=== PATIENT | female | born 1995 | race Two or more races ===

== ENCOUNTER 2016-06-28 07:22 | Inpatient (IN) | payer OTHER ==
[2016-06-28] MEDS ORDERED: OXYTOCIN IN NS 334 ML IV PRN (07:44)
[2016-06-28] MEDS ORDERED: LACTATED RINGERS 1,000 ML IV PRN (07:44)
[2016-06-28] MEDS ORDERED: PENICILLIN G POTASSIUM 5 MMU in NS 0.9% (MINI-BAG PLUS) 100 ML IV ONE ×2 (07:44→08:45)
[2016-06-28] MEDS ORDERED: LACTATED RINGERS 1,000 ML IV SCH (07:45)
[2016-06-28] MEDS ORDERED: OXYTOCIN 10 UNITS/ML VIAL ONE ×2 (08:38→11:53)
[2016-06-28] MEDS ORDERED: LIDOCAINE Viscous 2% 15 ML UDCUP ONE (08:39)
[2016-06-28] MEDS ORDERED: MINERAL OIL 25 ML BOT ONE (08:39)
[2016-06-28] MEDS ORDERED: LIDOCAINE 1% (PRES FREE) 30 ML VIAL ONE (08:39)
[2016-06-28] MEDS ORDERED: INSULIN NPL SUB-Q ONE (08:54)
[2016-06-28] MEDS ORDERED: LISPRO SUB-Q ONE (08:54)
[2016-06-28 09:17] LABS: HEMATOCRIT 35.9 % (37.0-47.0); HEMOGLOBIN 11.8 gm/l (12.0-16.0); MEAN CELL VOLUME 86.5 fl (81.0-99.0); MEAN CORPUSCULAR HEMOGLOBIN 28.4 pg (27.0-31.0); MEAN CORPUSCULAR HGB CONC 32.9 g/dl (33.0-37.0); RED CELL DISTRIBUTION WIDTH 13.4 % (11.5-14.5)
[2016-06-28] MEDS ORDERED: BETAMETHASONE ACET 6 MG/ML 5ML VIAL IM ONE (09:58)
[2016-06-28 10:11] VITALS: BMI 45.4
[2016-06-28] MEDS ORDERED: INSULIN ASPART (DOSE) 100 UNITS/1 ML SUB-Q ONE (10:31)
--- NOTE | 2016-06-28 10:42 | PCMAN ---
OB Admission Note - History : 2 Term: 1 : 0 Abortions (S&E): 0 Livin EDC:: 07/31/16 (by 10wk US) Gestational Age (weeks): 35 Days (#/7): 2 Admit Cervical Dilation:: 4 Admit Cervical Effacement (%):: 50 Admit Station:: -3 Admit Presentaton:: cephalic Membrane Status: Ruptured Rupture (Date): 06/28/16 Rupture (Time): 05:00 Membranes Comment:: clear fluid Labor Onset (Date): 06/28/16 Labor Onset (Time): 05:00 Contractions: Yes Contraction Frequency:: q 2-3min Heart Rate:: 150 (moderate, accels present, decels absent) Status:: Cat I EFW:: 8.5lbs Summary of Course:: Note delayed d/t patient care. Late to care due to insurance issues, onset at 17w2d x 7 visit, gap in care from 28 to 33wks. Sure LMP gave PANDA 08/19/16 but 10wk u/s gave PANDA 07/31/16, given 2wk discrepancy PANDA changed to U/S. 3hr GTT 166, 261, 226, A1C 7.1, fasting on admit 140. Delayed 3hr GTT d/t patient lack of follow up after request for lab at [facility]. Pre preg wt: 180, BMI 35.9, TWlbs. OB HxIOL d/t late diagnosis of GDM without treatment, 7lbs 8oz baby at 39wks. No complications with shoulder dystocia. Reported SROM at 0500 for clear fluid with spontaneous onset of contractions, arrived to [facility] with strong regular contractions and shortly after had spontaneous urge to push. - Labs Blood Type: O (+) positive Hct/Hgb:: 12.0 Rubella Status: Immune GBS Status: Unknown - Review of Systems neg - Physical Exam General: Afebrile, Moderate Distress (with contractions, active labor.) Neurological: Alert, Oriented x 4, Normal Gait Lungs: Clear to Auscultation Bilaterally Cardiovascular: Regular Rate and Rhythm Genitourinary: Normal Female Genitalia - Problems (1) Premature rupture of membranes (PROM), onset of labor within 24 hours, antepartum, full term Status: Acute Code: O42.019Assessment/Plan: A: at 35w2d by 10wk u/s. PPROM clear fluid, gbs unknown Active labor, spontaneous urge to push FHT cat. I Late diagnose GDM untreated OB hx GDM late diagnosis with IOL at 39wks 7lb 8oz baby uncomplicated P: Admit to [facility] IV and GBS prophylaxis if needed Anticipate precipitous delivery
--- NOTE | 2016-06-28 10:49 | PDOC36 ---
Provider Note Subject: OB consultation Note: 20yo , at 35+2; pt is dated by 10w u/s confirmed with 20w anatomy ultrasound. Pt admitted with SROM and labor at 5cm. Pt is a late diagnosis of GDM, with a hgba1c 06/27/16 of 7.1. Upon admission fsbs = 140, was given 2u humalog, and repeat 153. FHT: 130's, mod lewis, reactive, early decelerations are noted; contractions q3-4 min, strong per pt SVE: /-2, cephalic EFW = 4200g plan: PCN for GBS betamethasone 1 dose given another 6units humalog ordered (for total of 8units) discussed possible macrosomia, diabetes and risk of shoulder dystocia / injury clinical efw 4200g, and discussed risks offered primary c/section - discussed as efw 4200g (less than 4500g as per ACOG guidelines) however there is some variance with clinical EFW and there is possibility actual FW may be >4500g, along with uncontrolled diabetes. pt has considered and desires primary c/section. sign-out given to Dr. Cook.
--- NOTE | 2016-06-28 10:57 | PDOC36 ---
Provider Note Subject: consult GDM Note: S: Dara has had spontaneous urge to push and is struggling to cope. 3hr GTT results called in by CNLinda in clinc, elevated. O: VE: /-3 FHT: Cat I 150s/moderate/accels present/decels absent A: at 35w2d PPROM, gbs unknown Uncontrolled GDM, late diagnosis P: Phone consult to Lew re elevated 3hr, AIC, and fasting, late diagnosis Given strong urge to push and potential for eminent delivery, consulted for GDM management. Plan made for 2unit Humalog SQ, if not delivered or eminent by 1 hr will re- evaluate
--- NOTE | 2016-06-28 11:02 | PDOC36 ---
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
[2016-06-28 11:18] LABS: ALB/GLOB RATIO 1.1 (>1.0); CALCIUM 8.7 mg/dL (8.6-10.3); URIC ACID 4.5 mg/dL (2.3-7.6)
[2016-06-28] MEDS ORDERED: BUPIVACAINE 0.75% SPINAL AMPUL 2 ML ONE (11:30)
[2016-06-28] MEDS ORDERED: SPINAL PROCEDURAL TRAY 1 EACH ONE (11:30)
[2016-06-28] MEDS ORDERED: MORPHINE SULFATE (DURAMORPH) 1 MG/ML 10ML AMP ONE (11:30)
[2016-06-28] MEDS ORDERED: FENTANYL 100 MCG/2 ML VIAL ONE (11:30)
[2016-06-28] MEDS ORDERED: CEFAZOLIN SODIUM 1,000 MG VIAL ONE (11:51)
[2016-06-28] MEDS ORDERED: DIPHENHYDRAMINE HCL 50 MG/1 ML VIAL IV PRN ×2 (12:00→13:51)
[2016-06-28] MEDS ORDERED: NALOXONE HCL 0.4 MG/ML VIAL IV PRN (12:00)
[2016-06-28] MEDS ORDERED: PROMETHAZINE HCL 25 MG/ML VIAL IM PRN (12:00)
[2016-06-28] MEDS ORDERED: EPHEDRINE SULFATE 50 MG/ML 1ML VIAL IV PRN (12:00)
[2016-06-28] MEDS ORDERED: MORPHINE SULFATE 4 MG/ML SYRINGE IV PRN (12:00)
[2016-06-28] MEDS ORDERED: HYDROMORPHONE HCL 1 MG/ML SYRINGE IV PRN (12:00)
[2016-06-28] MEDS ORDERED: MORPHINE SULFATE 2 MG/ML SYRINGE IV PRN (12:00)
[2016-06-28] MEDS ORDERED: NALBUPHINE HCL 20 MG/ML AMP IV PRN (12:00)
[2016-06-28] MEDS ORDERED: ONDANSETRON 4 MG/2ML 2 ML VIAL IV PRN ×2 (12:00→13:51)
[2016-06-28] MEDS ORDERED: HYDROMORPHONE HCL 2 MG/ML SYRINGE IV PRN (12:00)
[2016-06-28] MEDS ORDERED: MORPHINE SULFATE 10 MG/ML SYRINGE IV PRN (12:00)
[2016-06-28] MEDS ORDERED: DIPHENHYDRAMINE HCL 50 MG/1 ML VIAL ONE (12:20)
[2016-06-28] MEDS ORDERED: MIDAZOLAM HCL 1 MG/ML 2ML VIAL ONE (12:21)
[2016-06-28] MEDS ORDERED: KETOROLAC TROMETHAMINE 30 MG/ML 1 ML VIAL ONE (12:24)
[2016-06-28] MEDS ORDERED: PENICILLIN G 3 MIL UNIT PREMIX 3 MMU in Premix (D5W) 50 ml 1 EACH IV SCH (12:30)
[2016-06-28] MEDS ORDERED: DIPHENHYDRAMINE HCL 25 MG CAPSULE PO PRN (13:51)
[2016-06-28] MEDS ORDERED: OXYCODONE HCL 5 MG TABLET PO PRN (13:51)
[2016-06-28] MEDS ORDERED: LANOLIN 50 APPLIC/7G TUBE TP PRN (13:51)
[2016-06-28] MEDS ORDERED: KETOROLAC TROMETHAMINE 30 MG/ML 1 ML VIAL IV PRN (13:51)
[2016-06-28 16:26] LABS: CREATININE,RANDOM URINE 138 mg/dL
[2016-06-28] MEDS: D5 1/4NS with 20 mEq KCL 1,000 ML IV SCH (18:01)
[2016-06-28] MEDS: KETOROLAC TROMETHAMINE 30 MG/ML 1 ML VIAL IV SCH (18:44)
--- NOTE | 2016-06-28 20:35 | PDOC36 ---
Provider Note Subject: Post-op note Note: S: Pt asking to get up to go see her baby girl, Kym, who is in the nursery because of respiratory and blood sugar issues. Pain is OK. Emesis x 1 but after that pt has tolerated broth and water. O: VS improving, afebrile, BP 124/67 glucose was 120. Pt seems relaxed and conversing without difficulty. abd is soft, rounded, tympanitic, with somr BS Binder is on. Imp: Stable, post-op primary c/section for macrosomia, GDM unrecognized till this week; PTL at 35w2d with baby weighing 8lb5oz BP's are returning to normal, even tho P/C was elevated. Plan: Routine post-op care. Pt encouraged to get out of bed with assistance.
[2016-06-28] MEDS: DOCUSATE SODIUM 100 MG CAPSULE PO SCH (22:34)
[2016-06-29] MEDS: KETOROLAC TROMETHAMINE 30 MG/ML 1 ML VIAL IV SCH ×3 (00:47→21:40)
[2016-06-29] MEDS: D5 1/4NS with 20 mEq KCL 1,000 ML IV SCH ×3 (02:25→21:11)
[2016-06-29 06:34] LABS: HEMATOCRIT 27.3 % (37.0-47.0); HEMOGLOBIN 9.1 gm/l (12.0-16.0); MEAN CELL VOLUME 86.7 fl (81.0-99.0); MEAN CORPUSCULAR HEMOGLOBIN 28.9 pg (27.0-31.0); MEAN CORPUSCULAR HGB CONC 33.3 g/dl (33.0-37.0); RED CELL DISTRIBUTION WIDTH 13.7 % (11.5-14.5)
--- NOTE | 2016-06-29 06:36 | OP ---
Dara Espinoza DATE OF SURGERY: 06/28/2016 SURGEON: Vivek Cook MD. VALVE INSERTER SURGEON: Chela Harrison CNM. PREOPERATIVE DIAGNOSIS: Intrauterine at term with premature labor and macrosomia. POSTOPERATIVE DIAGNOSIS: Intrauterine at term with premature labor and macrosomia and gestational diabetes. ANESTHESIA: Spinal. FINDINGS: A viable , normal appearing placenta. TECHNICAL PROCEDURE: After induction of satisfactory spinal anesthesia the patient was placed in the supine position and prepped and draped in the usual fashion. The abdomen was entered in the usual fashion through a pfannenstiel type incision. The left paravesical space was identified and the left lateral edge of the bladder and peritoneal reflection were both identified. This space was developed using blunt dissection. The pubocervical fascia in this area was incised with a knife and Morin retractors were used to expose the lower uterine segment. The lower uterine segment was then incised transversely with a knife and this incision extended bilaterally using the index fingers of both hands. The head was then elevated out of the pelvis and delivered using Lea forceps. There was some difficulty in extracting the shoulders, however, that was accomplished successfully. The infant was delivered. The infant was thoroughly suctioned. The umbilical cord was clamped after 30 seconds and divided and the infant passed off of operative field. A segment of cord was retained for cord blood gas and cultures if that was thought to be necessary. The placenta was then delivered and the cord blood was obtained. The angles of the uterine incision were tagged with Jeffery and forceps and the uterus closed in two layers. The first layer was a continuous interlocking loop suture of 0 PDS and the same suture was used to close the second layer in a continuous fashion. A small laceration was noted in the peritoneum and this was closed using a continuous stitch of 2-0 Vicryl. The fascia was then closed with a simple stitch of 0 Vicryl in the midline followed by a continuous loop suture of 0 PDS and finally the skin was closed with subcuticular stitch of 4-0 Vicryl. The incision was then treated with a skin adhesive followed by Steri-Strips. The patient tolerated the procedure well and left the operating room awake and in good condition. There were no complications. Instrument, needle, and sponge counts were correct. Estimated blood loss was 500 mL. There was no blood replacement. Specimens removed were a viable male infant and term placenta. JOB: [id number]
[2016-06-29 06:52] LABS: ALBUMIN 2.5 gm/dL (3.5-5.7); CALCIUM 8.2 mg/dL (8.6-10.3)
--- NOTE | 2016-06-29 08:41 | PDOC44 ---
- Subjective Day: 1 (feels well, offers no complaints) Reports Flatus, Reports Pain Tolerable, Reports , Reports Lochia Moderate, Reports Tolerating Regular Diet, Denies Nausea, Denies Vomiting, Denies Fever - Objective Temp Pulse Resp BP Pulse Ox 98.2 F 91 20 113/60 100 06/29/16 07:42 06/29/16 07:42 06/29/16 07:42 06/29/16 07:42 06/28/16 14:48 Lab Results 06/29/16 06/28/16 06/28/16 06:20 09:54 09:05 WBC 11.7 H 12.1 H RBC 3.15 L 4.15 L Hgb 9.1 L D 11.8 L Hct 27.3 L 35.9 L Plt Count 252 247 Creatinine 0.7 0.5 L Uric Acid 4.5 AST 20 25 ALT 13 19 Lactate Dehydrogenase 161 06/29/16 06/28/16 06/28/16 06:20 11:39 10:13 MCHC Sodium 130 L Carbon Dioxide Estimated GFR Glucose 172 H POC Capillary Glucose 147 H 153 H Calcium 8.2 L Alkaline Phosphatase Total Protein 5.0 L Albumin 2.5 L 06/28/16 06/28/16 06/28/16 09:54 09:05 08:46 MCHC 32.9 L Sodium Carbon Dioxide 16 L Estimated GFR 154 H Glucose 148 H POC Capillary Glucose 140 H Calcium Alkaline Phosphatase 131 H Total Protein 5.8 L Albumin 3.0 L Current Medications Generic Name Dose Route Start Last Admin Trade Name Freq PRN Reason Stop Dose Admin Diphenhydramine HCl 25 - 50 mg 06/28/16 12:00 06/28/16 22:39 Benadryl IV 06/29/16 12:00 25 mg Q4H PRN Administration Itching Diphenhydramine HCl 25 - 50 mg 06/28/16 13:51 Benadryl PO Q6H PRN Itching (Mild/Moderate) Diphenhydramine HCl 25 - 50 mg 06/28/16 13:51 Benadryl IV Q6H PRN Itching (Severe) Docusate Sodium 100 mg 06/28/16 21:00 06/28/16 22:34 Colace PO Not Given BID AMELIA Emollient Ointment 1 applic 06/28/16 13:51 Kak-[id number]-[id number] TP PRN PRN sore nipples Ephedrine Sulfate 5 - 10 mg 06/28/16 12:00 Ephedrine Sulfate IV 06/29/16 12:00 Q5M PRN Hydromorphone HCl 0.5 - 2 mg 06/28/16 12:00 Dilaudid IV 06/29/16 12:00 Q1H PRN Pain (Breakthrough) Hydromorphone HCl 0.5 - 2 mg 06/28/16 12:00 Dilaudid IV 06/29/16 12:00 Q1H PRN Pain Potassium Chloride/Dextrose/Sod Cl 1,000 mls @ 125 mls/hr 06/28/16 13:51 02:25 D5 1/4ns With 20 Meq Kcl IV 125 mls/hr .Q8H AMELIA Administration Ibuprofen 800 mg 06/28/16 13:51 Motrin PO Q6H PRN Pain Ketorolac Tromethamine 30 mg 06/28/16 18:30 06/29/16 07:57 Toradol IV 06/29/16 18:29 30 mg Q6H AMELIA Administration Ketorolac Tromethamine 30 mg 06/28/16 13:51 Toradol IV Q6H PRN Pain (Mild/Moderate) Morphine Sulfate 1 - 5 mg 06/28/16 12:00 Morphine Sulfate IV 06/29/16 12:00 Q1H PRN Pain (Breakthrough) Morphine Sulfate 1 - 5 mg 06/28/16 12:00 Morphine Sulfate IV 06/29/16 12:00 Q1H PRN Pain (Breakthrough) Morphine Sulfate 1 - 5 mg 06/28/16 12:00 Morphine Sulfate IV 06/29/16 12:00 Q1H PRN Pain (Breakthrough) Multivi/Iron Carb/Fe Sulf/FA/Prenat 1 tab 06/29/16 09:00 Plus PO DAILY AMELIA Nalbuphine HCl 1 - 5 mg 06/28/16 12:00 Nubain IV 06/29/16 12:00 Q4H PRN Itching Naloxone HCl 0.2 - 0.4 mg 06/28/16 12:00 Narcan IV 06/29/16 12:00 Q5M PRN Ondansetron HCl 4 mg 06/28/16 12:00 06/28/16 17:57 Zofran IV 06/29/16 12:00 4 mg Q6H PRN Administration Nausea/Vomiting Ondansetron HCl 4 mg 06/28/16 13:51 Zofran IV Q6H PRN Nausea/Vomiting Oxycodone HCl 5 - 10 mg 06/28/16 13:51 Roxicodone PO Q3H PRN Pain (Severe) Promethazine HCl 6.25 - 12.5 mg 06/28/16 12:00 Phenergan IM 06/29/16 12:00 Q4H PRN Nausea/Vomiting Sodium Chloride 10 ml 06/28/16 13:51 06/29/16 00:48 Normal Saline 10ml Flush IV 10 ml PRN PRN Administration IV Flush Sodium Chloride 10 ml 06/28/16 17:00 06/28/16 18:19 Normal Saline 10ml Flush IV Not Given Q8HR AMELIA - Physical Exam General: Afebrile, No Acute Distress Psych/Mental Status: Mood/Affect Appropriate, Judgment/Insight Intact, Bonding Well Lungs: Clear to Auscultation Bilaterally, Normal Air Movement Breast: Soft, Skin intact, Nipples Intact, No Tenderness, No Erythema, No Engorged Fundus: Firm, Midline, At Umbilicus, Other (nontender) Abdomen: Normal Bowel Sounds, Other (passed flatus, no bowel movement yet), No Tenderness, No Distention Genitourinary: Indwelling Urinary Cath Lochia: Moderate Extremities: No Tenderness Wound DBAS: Dressing in Place, Dressing Clean/Dry/Intact - Problems:Assessment/Plan (1) Anemia, Status: Acute Disposition: Stable
[2016-06-29] MEDS: DOCUSATE SODIUM 100 MG CAPSULE PO SCH ×2 (09:15→21:08)
[2016-06-29] MEDS: METFORMIN HCL 500 MG TABLET PO SCH ×2 (09:16→21:08)
[2016-06-29] MEDS: PRENATAL VIT/FE FUMARATE/FA 1 TABLET PO SCH (09:16)
[2016-06-29] MEDS: IBUPROFEN 800 MG TABLET PO PRN ×2 (15:44→23:23)
[2016-06-30] MEDS: D5 1/4NS with 20 mEq KCL 1,000 ML IV SCH (03:25)
[2016-06-30] MEDS: IBUPROFEN 800 MG TABLET PO PRN ×2 (06:24→12:44)
--- NOTE | 2016-06-30 07:44 | PDOC44 ---
- Subjective Day: 2 Reports Flatus, Reports Pain Tolerable, Reports , Reports Lochia Light, Reports Tolerating Regular Diet, Denies Nausea, Denies Vomiting, Denies Fever - Objective Temp Pulse Resp BP Pulse Ox 98.2 F 93 18 131/79 100 06/30/16 01:34 06/30/16 01:34 06/30/16 01:34 06/30/16 01:34 06/28/16 14:48 Current Medications Generic Name Dose Route Start Last Admin Trade Name Freq PRN Reason Stop Dose Admin Diphenhydramine HCl 25 - 50 mg 06/28/16 13:51 Benadryl PO Q6H PRN Itching (Mild/Moderate) Diphenhydramine HCl 25 - 50 mg 06/28/16 13:51 Benadryl IV Q6H PRN Itching (Severe) Docusate Sodium 100 mg 06/28/16 21:00 06/29/16 21:08 Colace PO 100 mg BID AMELIA Administration Emollient Ointment 1 applic 06/28/16 13:51 [id number] TP PRN PRN sore nipples Potassium Chloride/Dextrose/Sod Cl 1,000 mls @ 125 mls/hr 06/28/16 13:51 03:25 D5 1/4ns With 20 Meq Kcl IV Not Given .Q8H AMELIA Ibuprofen 800 mg 06/28/16 13:51 06/30/16 06:24 Motrin PO 800 mg Q6H PRN Administration Pain Ketorolac Tromethamine 30 mg 06/28/16 13:51 Toradol IV Q6H PRN Pain (Mild/Moderate) Metformin HCl 500 mg 06/29/16 09:00 06/29/16 21:08 Glucophage PO 500 mg BID AMELIA Administration Multivi/Iron Carb/Fe Sulf/FA/Prenat 1 tab 06/29/16 09:00 06/29/16 09:16 Plus PO 1 tab DAILY AMELIA Administration Ondansetron HCl 4 mg 06/28/16 13:51 Zofran IV Q6H PRN Nausea/Vomiting Oxycodone HCl 5 - 10 mg 06/28/16 13:51 Roxicodone PO Q3H PRN Pain (Severe) Sodium Chloride 10 ml 06/28/16 13:51 05/04/17 00:48 Normal Saline 10ml Flush IV 10 ml PRN PRN Administration IV Flush Sodium Chloride 10 ml 06/28/16 17:00 06/30/16 03:26 Normal Saline 10ml Flush IV Not Given Q8HR AMELIA - Physical Exam Fundus: Firm, At Umbilicus Abdomen: No Tenderness, No Distention Wound CODING DIRECTOR: Well Approximated (steri strips), No Shadow Drainage, No Drainage, No Erythema, No Eccymosis, No Edema Disposition: Stable, Anticipate DC to Home (pt desires discharge today; f/u 2w with Dr. Hackett; rx percocet.)
--- NOTE | 2016-06-30 07:52 | PDOC39B ---
Hospital Course: ADMIT DATE: 06/28/16 DISCHARGE DATE: 06/30/16 ADMISSION DIAGNOSES: 35 weeks () , labor, gestational diabetes ( poorly controlled), macrosomia PROCEDURES: primary c/section HISTORY OF PRESENT ILLNESS: 20 year old G2 T1 L1 at 35 weeks 2 days presenting with labor and SROM. Pt was 5cm at admission. HOSPITAL COURSE: The patient had very recently diagnosed with gestational diabetes, not yet time for followup or meds. Qrjh6t=9.1. Upon admssion FSBS 140-150's. Care transferred from [facility] to OB service. Upon evaluation, estimated weight was 4200g. Elective primary c/section was offered due to possibility of macrosomia with diabetes. Pt considered and elected for c/ section. A primary c/section was performed, baby female, 8lbs 5oz, 8/9 apgars. FSBS 140-170s. Pt was started on metformin. By day of discharge the patient is ambulating, eating, voiding, and passing flatus without difficulty. Pain is controlled and lochia is appropriate. She is []. Pt desired d/c on PPD#2. Rx percocet and motrin. f/u [address]w [address] Hackett. - Physical Exam Vital Signs: Temp Pulse Resp BP Pulse Ox 98.2 F 93 18 131/79 100 06/30/16 01:34 06/30/16 01:34 06/30/16 01:34 06/30/16 01:34 06/28/16 14:48 - Discharge Plan Prescriptions: Metformin HCl [Glucophage] 500 mg PO BID #60 tablet Oxycodone HCl/Acetaminophen [PERCOCET 5/325 MG TABLET (SHF)] 1 - 2 tab PO Q4H PRN #40 tab PRN Reason: Pain Follow-Up: Srinivasa Hackett MD [Staff Physician] - In 2 weeks (for incision check)
[2016-06-30 08:53] VITALS: BP 134/85
[2016-06-30] MEDS: METFORMIN HCL 500 MG TABLET PO SCH (08:57)
[2016-06-30] MEDS: PRENATAL VIT/FE FUMARATE/FA 1 TABLET PO SCH (08:57)
[2016-06-30] MEDS: DOCUSATE SODIUM 100 MG CAPSULE PO SCH (08:57)
== END 2016-06-30 13:00 | disposition home or self-care (01) | DRG 766 ==
LOC: FBCOUT 07:22 → FBC 07:22 → FBCOUT 07:56 → FBC 08:34
PROVIDERS: ADMIT Advanced Practice Midwife; ATTEND Obstetrics & Gynecology
PROC: 10D00Z1 Extraction of Products of Conception, Low, Open Approach (ICD-10-PCS; principal; 2016-06-28)
DX: O42.913 Preterm premature rupture of membranes, unspecified as to length of time between rupture and onset of labor, third trimester (principal); O24.420 Gestational diabetes mellitus in childbirth, diet controlled; O76 Abnormality in fetal heart rate and rhythm complicating labor and delivery; O66.2 Obstructed labor due to unusually large fetus; O90.81 Anemia of the puerperium; D64.9 Anemia, unspecified; Z3A.35 35 weeks gestation of pregnancy; Z37.0 Single live birth